=== PATIENT | male | born 1995 | race African-American/Black ===

== ENCOUNTER 2016-11-26 10:13 | Emergency (ER) | payer OTHER ==
[2016-11-26 10:22] VITALS: BP 106/57; PULSE 101; TEMP 97.9; BMI 18.8
[2016-11-26] MEDS ORDERED: IBUPROFEN 400 MG TABLET (FP) PO ONE ×2 (10:56→10:57)
--- NOTE | 2016-11-26 10:56 | PDOC ---
History of Present Illness - General Chief Complaint: Injury Stated Complaint: LT ANKLE INJURY Time Seen by Provider: 11/26/16 10:38 History Source: Patient Exam Limitations: No Limitations - History of Present Illness Initial Comments: 11/26/16 10:50 CHIEF COMPLAINT: Left lateral ankle injury HISTORY OF PRESENT ILLNESS: Patient is an otherwise healthy 21-year-old male presents with inversion injury to left ankle yesterday while playing basketball. Received patient limping, mild edema to left lateral ankle. Occurred: reports: yesterday Severity: Yes: moderate Lower Extremity Pain Location: left: ankle Lower Ext. Injury Location - Specific Injury Location Ankle: left pain, left swelling Extremity Pain Location - Extremity Pain Location Extremity Pain Locations: left: ankle Past History - Past Medical History Allergies/Adverse Reactions: Allergies Allergy/AdvReac Type Severity Reaction Status Date / Time No Known Allergies Allergy Verified 11/26/16 10:19 Home Medications: Ambulatory Orders Ibuprofen [Motrin -] 600 mg PO QID #28 tablet 11/26/16 Other medical history: DENIES. - Psycho/Social/Smoking Cessation Hx Suicidal Ideation: No Smoking History: Never smoked Hx Alcohol Use: No Substance Use Type: None Review of Systems - Review of Systems Constitutional: No: Symptoms Reported HEENTM: No: Symptoms Reported Respiratory: No: Symptoms reported Cardiac (ROS): No: Symptoms Reported ABD/GI: No: Symptoms Reported : No: Symptoms Reported Musculoskeletal: Yes: Joint Pain, Joint Swelling. No: Muscle Pain, Muscle Weakness, Neck Pain, Joint Stiffness Integumentary: No: Symptoms Reported, Bruising, Erythema Neurological: No: Symptoms reported, Paresthesia, Tingling, Tremors All Other Systems: Reviewed and Negative *Physical Exam - Vital Signs Last Vital Signs Temp Pulse Resp BP Pulse Ox 97.9 F 101 H 19 106/57 99 11/26/16 10:19 11/26/16 10:19 11/26/16 10:19 11/26/16 10:19 11/26/16 10:19 - Physical Exam General Appearance: Yes: Appropriately Dressed. No: Apparent Distress Respiratory/Chest: positive: Lungs Clear, Normal Breath Sounds Cardiovascular: positive: Regular Rhythm Extremity: positive: Normal Capillary Refill, Normal Range of Motion (with pain) , Swelling. negative: Pedal Edema, Calf Tenderness, Erythema, Inflammation Integumentary: positive: Normal Color, Dry, Swelling (left lateral ankle). negative: Erythema, Ecchymosis, Bruising Neurologic: positive: Alert, Normal Mood/Affect ED Treatment Course - RADIOLOGY Radiology Studies Ordered: Category Date Time Status ANKLE & FOOT-LEFT* [RAD] Stat Radiology 11/26/16 10:38 Ordered Medical Decision Making - Medical Decision Making 11/26/16 10:55 A/P: Patient here for evaluation of inversion injury to left lateral ankle, sent to x-ray to rule out acute fracture although low suspicion. 11/26/16 11:23 Xray with no acute fracture noted. Sean wrap placed on, Motrin for pain, follow- up with orthopedics in one week if pain persists. *DC/Admit/Observation/Transfer Diagnosis at time of Disposition: Ankle sprain Qualifiers: Encounter type: initial encounter Involved ligament of ankle: calcaneofibular ligament Laterality: right Qualified Code(s): S93.411A - Sprain of calcaneofibular ligament of right ankle, initial encounter - Discharge Dispostion Disposition: HOME Condition at time of disposition: Good Admit: No - Prescriptions Prescriptions: Ibuprofen [Motrin -] 600 mg PO QID #28 tablet - Referrals Referrals: José Luis Wong MD [Staff Physician] - - Patient Instructions Printed Discharge Instructions: DI for Ankle Sprain Additional Instructions: 1. Please return to the emergency department with any redness, swelling, increased pain, or any other concerns. 2. Keep sean wrap on until feels better for support. 3. Please follow up in the office of Dr. Wong within a week if pain persists. 4. No weightbearing 5. Ice and elevate when at rest. 6. Motrin for pain - Post Discharge Activity Work/School Note: Back to Work
== END 2016-11-26 11:32 | disposition home or self-care (01) ==
LOC: JERFT 10:13
DX: S93.411A Sprain of calcaneofibular ligament of right ankle, initial encounter (principal); X50.0XXA Overexertion from strenuous movement or load, initial encounter; Y93.67 Activity, basketball; Y92.310 Basketball court as the place of occurrence of the external cause
CPT/HCPCS: 73610-TC-LT; 73630-TC-LT; 99281-25

== ENCOUNTER 2017-05-01 03:00 | Emergency (ER) | payer OTHER ==
[2017-05-01] MEDS ORDERED: CYCLOBENZAPRINE HCL 5 MG TABLET PO ONE (04:19)
[2017-05-01] MEDS ORDERED: IBUPROFEN 600 MG TABLET (FP) PO ONE ×2 (04:19→04:26)
[2017-05-01] MEDS ORDERED: CYCLOBENZAPRINE HCL 10 MG TABLET (FP) ONE (04:26)
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
[2017-05-01 08:06] VITALS: BP 131/84; PULSE 70; TEMP 97.8; BMI 19.5
== END 2017-05-01 06:58 | disposition home or self-care (01) ==
LOC: JER 03:00
DX: S86.811A Strain of other muscle(s) and tendon(s) at lower leg level, right leg, initial encounter (principal); V43.62XA Car passenger injured in collision with other type car in traffic accident, initial encounter; Y92.414 Local residential or business street as the place of occurrence of the external cause; W22.12XA Striking against or struck by front passenger side automobile airbag, initial encounter; Y93.89 Activity, other specified; Y99.8 Other external cause status
CPT/HCPCS: 99281-25

== ENCOUNTER 2023-07-31 18:22 | Emergency (ER) | payer OTHER ==
[2023-07-31 18:37] VITALS: BP 131/65; PULSE 100; RESP 18; BMI 22.3
[2023-07-31] MEDS ORDERED: KETOROLAC TROMETHAMINE 30 MG/1 ML VIAL ONE (18:49)
[2023-07-31] MEDS: KETOROLAC TROMETHAMINE 30 MG/1 ML VIAL IM ONE (18:52)
[2023-07-31 20:15] VITALS: TEMP 98.8
== END 2023-07-31 20:45 | disposition home or self-care (01) ==
LOC: JER 18:22 → JERFT 18:22
PROC: 3E0233Z Introduction of Anti-inflammatory into Muscle, Percutaneous Approach (ICD-10-PCS; principal; 2023-07-31)
DX: K52.9 Noninfective gastroenteritis and colitis, unspecified (principal); Z20.822 Contact with and (suspected) exposure to COVID-19
CPT/HCPCS: 0241U-QW; 99284-25